=== PATIENT | female | born 1980 | race Caucasian/White ===

== ENCOUNTER 2021-12-29 21:51 | Emergency (ER) | payer OTHER | END 2021-12-30 00:27 | disposition home or self-care (01) | LOC: FER 21:51 | DX: S09.90XA Unspecified injury of head, initial encounter (principal); R07.89 Other chest pain; F17.200 Nicotine dependence, unspecified, uncomplicated; W17.89XA Other fall from one level to another, initial encounter; Y92.812 Truck as the place of occurrence of the external cause | CPT/HCPCS: 70450; 71250 ==